=== PATIENT | male | born 2000 | race Caucasian/White ===

== ENCOUNTER 2024-03-28 05:23 | Emergency (ER) | payer MEDICAID ==
[~2024-03-28] VITALS: Ht 170.2 cm; Wt 77.1 kg
[2024-03-28 05:26] VITALS: BP 132/66; PULSE 103; RESP 18; TEMP 98.3; O2SAT 100
[2024-03-28 05:52] VITALS: BP 132/66; PULSE 103; RESP 18; TEMP 98.3; O2SAT 100
== END 2024-03-28 05:52 ==
LOC: MED 05:23
DX: Z02.89 Encounter for other administrative examinations (principal); M54.2 Cervicalgia; V89.2XXA Person injured in unspecified motor-vehicle accident, traffic, initial encounter; Y93.89 Activity, other specified; Y92.410 Unspecified street and highway as the place of occurrence of the external cause; Y99.8 Other external cause status
CPT/HCPCS: 99283